=== PATIENT | female | born 1950 | race Caucasian/White ===

== ENCOUNTER 2020-08-22 11:25 | Outpatient (CLI) | payer MEDICARE, MEDICAID, SELFPAY ==
--- NOTE | ~2020-08-22 | MM_ITS ---
EXAMINATION: MM screening [facility] BI w chavo HISTORY: Screening mammogram TECHNIQUE: Craniocaudal and mediolateral oblique 3-D tomosynthesis images were obtained and synthetic 2-D images were generated. CAD analysis was submitted and interpreted. COMPARISON: 04/09/2018, 08/01/2015, 02/01/2015 BREAST PARENCHYMAL COMPOSITION: There are scattered areas of fibroglandular density. FINDINGS: Scattered benign-appearing calcifications are present. There is no evidence of suspicious m ass, calcification, or architectural distortion to suggest malignancy in either breast. There has bee n no suspicious interval change. IMPRESSION: 1. No mammographic evidence of malignancy. 2. Recommend routine screening mammography in one year. BI-RADS Category 2: Benign finding(s). Reviewed, dictated and finalized at location A.
== END 2020-08-22 11:26 | disposition home or self-care (01) ==
LOC: ANHIMG 11:30
PROVIDERS: PCP Family Medicine; Visit Provider Family Medicine
DX: Z12.31 Encounter for screening mammogram for malignant neoplasm of breast (principal)
CPT/HCPCS: 77063; 77067

== ENCOUNTER 2021-06-19 18:54 | Emergency (ER) | payer MEDICARE, MEDICAID, SELFPAY ==
--- NOTE | 2021-06-19 19:25 | PC.NURSE ---
Pt noted to have an walked up to this nurse stating she was looking for her mother. This nurse stated she did not have a patient under the name of her mother. After this nurse recognized the pt was the pt and not the mother, this nurse asked if the pt simply wanted to find her mother. The pt stated she could not find her mother and declared that she was not the patient. This nurse asked why the pt had a wristband and the pt stated, I don't know why I have one, my son is the patient. Pt mother promptly showed up and told the patient to come and sit with her in the waiting room to be seen. The pt demonstrated signs of confusion but sat with her mother in the waiting room without complaint. Pt still does not understand she is the patient at this time.
--- NOTE | 2021-06-19 19:47 | PC.NURSE ---
pt before being seen by provider, stating we'll just come back tomorrow.
== END 2021-06-19 19:47 | disposition left against medical advice (07) ==
LOC: ANHED 19:56
PROVIDERS: PCP Family Medicine Adolescent Medicine
DX: Z53.21 Procedure and treatment not carried out due to patient leaving prior to being seen by health care provider (principal)
CPT/HCPCS: 99199

== ENCOUNTER 2023-06-26 04:13 | Emergency (ER) | payer MEDICARE, MEDICAID, SELFPAY ==
[2023-06-26] VITALS (13 sets, daily range): BP systolic 105–113; BP diastolic 73–81; PULSE 69–83; RESP 12–20; TEMP 36.3; O2SAT 94–96
[2023-06-26 04:24] LABS: Glucose Point of Care 103 mg/dl (65-105)
--- NOTE | 2023-06-26 04:24 | ED.ALCOHOL ---
HPI - Alcohol General Chief Complaint: Alcohol Stated Complaint: +ETOH, CANNOT CARE FOR HERSELF AT HOME Time Seen by Provider: 06/26/23 04:22 Source: patient and EMS Mode of arrival: EMS Limitations: no limitations and intoxication History of Present Illness HPI narrative: 73-year-old female presenting for alcohol intoxication. EMS was called for a lift assist at the patient's house and when I got there the patient was sitting at her kitchen table and wanted to come to the hospital because she is unable to take care of herself. Patient says she drinks alcohol most nights. Clearly intoxicated and patient is admitted to drinking liquor tonight. She is not complaining of any pain or injury. Related Data Home Medications Medication Instructions Recorded Confirmed ferrous sulfate 325 mg (65 mg 325 mg PO DAILY 07/03/21 10/15/22 iron) tablet (iron) multivitamin (Daily Multi-Vitamin 1 tablet PO DAILY 07/03/21 10/15/22 tablet) Allergies Allergy/AdvReac Type Severity Reaction Status Date / Time No Known Allergies Allergy Mild Verified 10/15/22 13:35 Review of Systems Review of Systems: All systems reviewed & are unremarkable except as noted in HPI and below PMFSH Family History Family History Mother Hypertension, Onset Age: 92 Grandparent Diabetes mellitus Father Hypertension Social History Social History Smoking status: Current every day smoker Tobacco type: cigarettes Second hand tobacco smoke exposure: No Alcohol intake: current Drinks per week: 7 Substance use: never Substance use type: does not use Living arrangements: with family Occupation/Education: retired Gender identity (if verbalized by the patient): Female Sexual Orientation (if Verbalized by the Patient): Straight or Heterosexual Spiritual care concerns: No Agree to blood products: Yes Exam Narrative: Constitutional: Generally well appearing, no acute distress , intoxicated Head: Atraumatic, no deformities. Eyes: Pupils equal, round, and reactive to light. Neck: Supple, no tracheal deviation, no JVD. ENMT: Mucous membranes moist Cardiovascular: S1, S2 auscultated. No murmurs, rubs, or gallops. No S3/S4. Normal Distal pulses. No peripheral edema. Respiratory: Lung sounds equal. No wheezes, rales, or rhonchi. Gastrointestinal: Abdomen was soft and non-tender. Non-distended. No rebound or guarding. Genitourinary: Deferred Musculoskeletal: Normal muscle tone and bulk. No obvious deformities or tenderness over extremities. Skin: No rashes. Neurological: Strength 5/5 in extremities. Cranial nerves I-XII grossly intact. Distal sensation intact. Mental Status: Awake, alert and oriented x3. Follows commands Course Vital Signs Vital signs: Vital Signs Temperature 36.3 C L 06/26/23 04:14 Pulse Rate 74 06/26/23 04:14 Respiratory Rate 20 06/26/23 04:14 Blood Pressure 111/81 06/26/23 04:14 Pulse Oximetry 95 06/26/23 04:14 Oxygen Delivery Room Air 06/26/23 04:14 Temperature 36.3 C L 06/26/23 04:14 Pulse Rate 72 06/26/23 04:28 Respiratory Rate 16 06/26/23 04:28 Blood Pressure 111/81 06/26/23 04:28 Pulse Oximetry 94 06/26/23 04:28 Oxygen Delivery Room Air 06/26/23 04:14 MDM - Alcohol MDM Narrative Medical decision making narrative: 73-year-old female presenting to emergency department for alcohol intoxication. EMS was called the house for lift assist the patient was sitting at the kitchen table when they arrived. She admits to drinking alcohol today and feels like she can not take care of herself. on exam she is well-appearing apart from alcohol intoxication. No signs of trauma at all. Bedside glucose is normal. I feel no indication of further workup given no trauma notable, patient well-appearing apart from alcohol intoxication. Carmen
[2023-06-26] MEDS: SODIUM CHLORIDE 0.9% IV 1,000 ML 999 ML IV CONT (04:45)
[2023-06-26 04:59] LABS: Basophils Absolute Auto 0.1 K/mm3 (0.0-0.1); Basophils Percent Auto 1.3 % (0.2-1.2); Eosinophils Absolute Auto 0.3 K/mm3 (0-0.3); Eosinophils Percent Auto 5.2 % (0-4.4); Hematocrit 41.4 % (37.0-47.0); Hemoglobin 13.3 g/dL (12.0-15.0); Lymphocytes Percent Auto 56.5 % (18.3-44.2); Mean Corpuscular HGB Conc 32.1 g/dl (32-36); Mean Corpuscular Hemoglobin 32.6 pg (26-34); Mean Corpuscular Volume 101.5 fl (80-100); Mean Platelet Volume 10.1 fl (7.4-10.4); Monocytes Absolute Auto 0.6 K/mm3 (0.1-0.6); Monocytes Percent Auto 8.9 % (2.6-8.5); Neutrophils Absolute Auto 1.8 K/mm3 (1.3-6.7); Neutrophils Percent Auto 28.1 % (45.5-73.1); Platelet Count Result 224 k/mm3 (150-375); Red Blood Count 4.08 M/mm3 (4.2-5.4); Red Cell Distribution Width 13.6 % (11.5-14.5); White Blood Count 6.4 K/mm3 (4.5-10.0)
[2023-06-26 05:22] LABS: Ethanol 302 mg/dL (<10)
== END 2023-06-26 07:15 | disposition home or self-care (01) ==
PROVIDERS: Emergency Provider Emergency Medicine; PCP Family Medicine Adolescent Medicine
DX: F10.120 Alcohol abuse with intoxication, uncomplicated (principal); Y90.8 Blood alcohol level of 240 mg/100 ml or more; F17.210 Nicotine dependence, cigarettes, uncomplicated; Z79.899 Other long term (current) drug therapy
CPT/HCPCS: 36415; 80307; 82948; 85025; 96360; 99283; J7030